=== PATIENT | male | born 1960 | race Caucasian/White ===

== ENCOUNTER 2018-10-27 12:48 | Emergency (ER) | payer OTHER, MEDICAID ==
[~2018-10-27] VITALS: Ht 185.4 cm; Wt 93.4 kg
[2018-10-27] MEDS ORDERED: LEVOFLOXACIN 250 MG TAB PO ONE (13:30)
[2018-10-27 14:51] VITALS: BP 159/89
== END 2018-10-27 14:54 | disposition home or self-care (01) ==
LOC: ER 12:48
DX: L03.116 Cellulitis of left lower limb (principal); E11.9 Type 2 diabetes mellitus without complications; F17.210 Nicotine dependence, cigarettes, uncomplicated; Z88.0 Allergy status to penicillin; Z88.1 Allergy status to other antibiotic agents; Z88.6 Allergy status to analgesic agent